=== PATIENT | female | born 1990 | race Two or more races ===

== ENCOUNTER 2018-10-30 05:14 | Outpatient (CLI) | payer OTHER ==
[~2018-10-30] VITALS: Ht 149.9 cm; Wt 105.0 kg
[2018-10-30 05:38] VITALS: BP 101/58
[2018-10-30] MEDS ORDERED: PRENTAB9 PO (05:48)
--- NOTE | 2018-10-30 06:35 | IPNPDOC ---
Text Note Date of Service The patient was seen on 10/30/18. NOTE OB Considerations: - H/O FGR, resolved - H/O Low Lying Placenta, resolved Leighton is a 28yo G1 at 37+2wks by LMP (CLAUDIO [id number]) presents for increased movement and a "weird shape" to her abdomen. She reports that her baby has been moving a lot over night, and she noted that yesterday, the bottom of her stomach felt "flatter" and "sucked in". Otherwise, she has no complaints and denies ctx, VB, LOF, headache, vision changes, RUQ pain. VS: Reviewed, WNL GEN: WNWD, NAD ABD: Soft, Gravid, NT EXT: No edema FHT: Reactive, 130bpm, moderate variability, + Accelerations, - Decelerations TOCO: Rare contractions A/P: SIUP at 37+2wks with the above complaint, feared condition - not found. Reaction NST, rare ctx. Discussed movement and position can change the shape of her belly. I discussed that it was good to feel movement and discussed concerned for decreased movement and discussed kick counts. She verbalized understanding and all questions were answered. - Discussed strict return and labor precautions - Encouraged hydration - Discussed kick counts - Patient is to keep all scheduled follow up, next appointment 26Sep DO DOROTHY Mcleod,Dru, I+O VS, Dru, I+O Vital Signs Date Time Temp Pulse Resp B/P (MAP) Pulse Ox O2 Delivery O2 Flow Rate FiO2 10/30/18 05:38 97.3 83 101/58 (72) I&O- Last 24 Hours up to 6 AM 10/30/18 06:00 Intake Total 200 ml Balance 200 ml GLO REYEZ DO Oct 30, 2018 06:35
== END 2018-10-30 06:25 | disposition home or self-care (01) ==
LOC: M LDO 05:14
PROVIDERS: ATTEND Obstetrics & Gynecology
DX: O26.893 Other specified pregnancy related conditions, third trimester (principal); Z3A.37 37 weeks gestation of pregnancy
CPT/HCPCS: 59025; G0378; G0463

== ENCOUNTER 2018-11-23 09:59 | Outpatient (CLI) | payer OTHER ==
[~2018-11-23] VITALS: Ht 149.9 cm; Wt 66.3 kg
[~2018-11-23 09:59] MED LIST: PRENTAB9 PO
[2018-11-23 10:14] VITALS: BP 102/63
--- NOTE | 2018-11-23 11:15 | IPNPDOC ---
Text Note Date of Service The patient was seen on 11/23/18. NOTE patient is a 28 yo G1 @ 40+5wks gestation presents to l&d for contractions. denies LOF/VB. +FM vitals: normal NAD abd: gravid ce: /-3 (per nursing exam) fht 135/mod tan/pos accel/no decel toco: irregular ctx a/p patient not in active labor. return precautions given. f/u for IOL as scheduled. DO Rose VS,Dru, I+O VS, Fishbone, I+O Vital Signs Date Time Temp Pulse Resp B/P (MAP) Pulse Ox O2 Delivery O2 Flow Rate FiO2 11/23/18 10:14 98.4 92 102/63 (76) ARLEEN GUALLPA DO Nov 23, 2018 11:15
== END 2018-11-23 11:30 | disposition home or self-care (01) ==
LOC: M LDO 09:59
PROVIDERS: ATTEND Obstetrics & Gynecology
DX: O47.1 False labor at or after 37 completed weeks of gestation (principal); Z3A.40 40 weeks gestation of pregnancy
CPT/HCPCS: 59025; G0378; G0463

== ENCOUNTER 2018-11-25 16:20 | Inpatient (IN) | payer OTHER ==
[~2018-11-25] VITALS: Ht 149.9 cm; Wt 66.3 kg
[2018-11-25] VITALS (8 sets, daily range): BP systolic 95–125; BP diastolic 51–70
[2018-11-25] MEDS ORDERED: [UNRECOGNIZED DRUG - CODE] PO (16:44)
[2018-11-25 17:09] LABS: HEMATOCRIT 34.2 % (36.0-47.0); HEMOGLOBIN 11.6 g/dl (12.0-15.5); MEAN CORPUSCULAR HEMOGLOBIN 31.3 pg (27.0-33.0); MEAN CORPUSCULAR HGB CONC 33.9 g/dl (32.0-36.5); MEAN CORPUSCULAR VOLUME 92.2 fl (80.0-96.0); PLATELET COUNT, AUTOMATED 224 10^3/uL (150-450); RED BLOOD COUNT 3.71 10^6/uL (4.00-5.40); WHITE BLOOD COUNT 10.8 10^3/uL (4.0-10.0)
[2018-11-25] MEDS ORDERED: LACTATED RINGER'S 1000 ML IV STA (18:03)
--- NOTE | 2018-11-25 18:20 | HPEPDOC ---
Obstetrical History & Physical General Date of Admission Nov 25, 2018 at 16:20 Primary Care Physician: Zoya Vaz MD History of Present Illness OB Considerations: Resolved Low Lying Placenta 27y/o G1 @ 41+0 wks by LMP c/w 1st trimester US (CLAUDIO [id number]) presents for IOL for pending post dates. Chief Complaint: Induction of labor Information Provided By: Patient Age: 27 : 1 Term: 0 Pre-term: 0 Abortions: 0 Livin Care Care: Good Care Dating Final EDC: Nov 18, 2018 Final EDC for Daily Update: Nov 18, 2018 Final EDC by: 1st trimester (US) Estimated Date of Confinement: Nov 18, 2018 EGA at Admission: 41 Antepartum Course Diagnos(e)s Resolved Low Lying Placenta 10th percentile, repeat scan 14th percentile Height (inches): 59 Pre- weight (lbs.): 127 Admission Weight (lbs.): 145 Change in Weight (lbs.): 19 Past Medical History Past Obstetrical History : Past Obstetrical History: Primgravida 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 Past Medical History Medical History Denies Surgical History: Denies/None Family History Significant Family History: No pertinent family hx Social History Marital Status: Family situation: Spouse/partner home Psychosocial History: No pertinent psych hx * Smoker: non-smoker Alcohol: Denies Drugs: denies Abuse Violence Screening Have you been hit/kicked/slapp: No Have you been sexually assault: No Imunizations Tdap status: current Influenza Status: needs Allergies Coded Allergies: No Known Allergies (Unverified , 10/30/18) Medications Scheduled [place]-3 Fatty Acids/Fish Oil (Fish Oil Pearls Softgel) 1 Each Capsule, 1 CAP PO DAILY No.137/Iron/Folic Acd ( Vitamin Tablet) 1 Each Tablet, 1 TAB PO DAILY Physical Examination Physical Examination GENERAL: Alert and oriented times three. BREAST: . ABDOMEN: Gravid and non-tender to touch. FETUS: Is vertex (VTX) by sterile vaginal examination (SVE), fetus is vertex (VTX) by Mlyes. HEART RATE: Regular rate and rhythm. LUNGS: Clear to auscultation (CTA). EXTREMITIES: No edema. No clonus. Deep tendon reflexes (DTRs) + . Vital Signs/I&O Vital Signs Date Time Temp Pulse Resp B/P (MAP) Pulse Ox O2 Delivery O2 Flow Rate FiO2 11/25/18 17:37 75 18 118/57 (77) 11/25/18 16:47 99.8 98 Laboratory Data 24H LABS Laboratory Tests 2 11/25/18 16:30: Serology Scanned Report Hepatitis B Testing 11/25/18 16:57: Nucleated Red Blood Cells % (auto) 0.0, Syphilis Serology NONREACTIVE CBC/BMP Laboratory Tests 11/25/18 16:57 Pertinent Laboratoy Data Blood Type: A+ RBC Antibody Screen: Negative HIV: Negative Hepatitis B: Negative Hepatitis C: Unknown Rapid Plasma Reagin: Nonreactive Rubella: Immune Varicella: Immune Chlamydia/Gonorrhea: Negative Group B Streptococcus: Negative Quad Screen Test: Unknown Cystic Fibrosis: Negative Glucose Tolerance Test: 112 Anatomy Ultrasound Ultrasound Date: July 01, 2018 Placenta Location: Posterior Normal Anatomy: Yes Placenta Previa: No (Low lying placenta) Estimated Weight (grams): 274 Other Ultrasounds [id number] Information Placenta 1.96cm from os EFW 645, 14%tile Steroid Therapy Steroid Therapy: No Vaginal Examination Dilation: 2cm Effacement: 50% Station: -2 Cervical Consistency: Medium Cervical Position: Posterior Presentation: Cephalic presentation Position: Vertex (occiput) Assessment Heart Rate (FHR): 135 Variability: Moderate Accelerations: Positive Decelerations: None Tocometer Contractions: Yes Frequency: regular, every 2-5 min. Duration: greater than 60 seconds Strength: palpated as moderate Multi-drug resistant Organism: No history of MDRO Assessment/Plan Assessment 27y/o G1 @ 41+0 wks admitted for IOL for PPD. EFW 3600g. Vertex by TAUS. Plan Admit and orient. Cap Coverer and consent. Diet: Clear liquids Group B Streptococcus (GBS) negative. Labs and intravenous (IV) per unit protocol. Will start ripening with cytotec 25mcg PV Counseled on Pitocin and induction of labor (IOL). Lactated Ringers (LR): Bolus 1000 mL, then at 125 mL/hr. Anticipate [normal spontaneous delivery ()]. C-S as appropriate. Labor and Delivery Counseling Discussed procedures on labor and delivery to include external and internal monitoring, antibiotics for infection, medication for pain control or to i nduce contractions. Discussed risks of delivery which include bleeding, with subsequent need for blood transfusion (risks include transfusion reaction and transmission of infectious disease such as Hepatitis or HIV), infection, tears of the vagina which will be repaired with suture that will dissolve on their own. If baby is low in the pelvis and has trouble with heart rate, sometimes delivery can be assisted with vacuum or forceps. Other risks include need for emergency , injury to baby, or need to do additional procedures. All questions answered to patient's apparent satisfaction. Zoya Vaz MD Nov 25, 2018 18:20
[2018-11-25] MEDS: LR 1,000 ML IV SCH (18:44)
[2018-11-25] MEDS ORDERED: miSOPROStol 25 MCG 1/4 TAB (S0191) PV ONE (20:15)
[2018-11-26] VITALS (64 sets, daily range): BP systolic 80–137; BP diastolic 45–66
--- NOTE | 2018-11-26 01:51 | IPNPDOC ---
Text Note Date of Service The patient was seen on 11/26/18. NOTE 27y/o G1 @ 41+1 wks undergoing IOL for PPD. DCE 50/-2, Cytotec given 193 DCE /-2 0030 FB placed (COOK, 60cc uterine side only) 0145 with some clot noted NST: 135, MOD SAMANTHA, +accels, no decels TOCO: q2-4 minutes A/p: 27y/o G1 @ 41+1 wks undergoing IOL for PPD. Currently undergoing cervical ripening with tiwari balloon. Some more than expected vaginal bleeding for early cervical dilation. Patient noted to have a low lying placenta, which most recently was measured 1.96cm from the os. Per up to date, chance of successful vaginal delivery with placenta 11mm to 20mm from os is 85%. Amount of bleeding not concerning for placental abruption at this time, Cat I heart tracing. -Continuous monitoring -Continue to monitor vaginal bleeding -Nubain 10IM/10IV, Phenergan 12.5mg at patient request -GBS negative: no prophylaxis indicated -Plan to start Pitocin with delivery of tiwari balloon VS,Fishbone, I+O VS, Fishbone, I+O Laboratory Tests 11/25/18 16:57 Vital Signs Date Time Temp Pulse Resp B/P (MAP) Pulse Ox O2 Delivery O2 Flow Rate FiO2 11/25/18 22:31 99.1 86 18 107/57 (74) 11/25/18 16:47 98 I&O- Last 24 Hours up to 6 AM 11/26/18 06:00 Intake Total 659 ml Balance 659 ml Zoya Vaz MD Nov 26, 2018 01:51
[2018-11-26] MEDS ORDERED: NALBUPHINE HCL 10 MG/ML AMP (J2300) IM ONE (02:00)
[2018-11-26] MEDS ORDERED: NALBUPHINE HCL 10 MG/ML AMP (J2300) IV ONE (02:00)
[2018-11-26] MEDS ORDERED: PROMETHAZINE INJ 25 MG/ML VIAL (J2550) IV ONE (02:00)
[2018-11-26] MEDS: LR 1,000 ML IV SCH ×4 (02:43→18:44)
[2018-11-26] MEDS ORDERED: OXYTOCIN DRIP 30 UNITS in IV 1 EA IV SCH (08:15)
[2018-11-26] MEDS ORDERED: FENTANYL 2MCG/ML ROPIVACAINE 0.2% IN 0.9% NACL 100ML IVBAG As Ordered ONE (16:30)
--- NOTE | 2018-11-26 17:20 | IPNPDOC ---
Text Note Date of Service The patient was seen on 11/26/18. NOTE assume care from MAJ Zuluaga patient is a 28 yo G1 @ 41+1wks admitted for IOL for PPD. Induction with cytotec and tiwari bulb. tiwari bulb came out around 1300 today. patient currently on 8mU/min pit. She was last checked when tiwari bulb placed. She is javon painfully and desires to have epidural. vital: normal nad fht: 120/mod tan/pos accel/no decel toco: ctx q 3min. patient likely in latent labor at this time. continue with plan for epidural. will assess for need to AROM after epidural placement. Le, DO VS,Fishbone, I+O VS, Fishbone, I+O Vital Signs Date Time Temp Pulse Resp B/P (MAP) Pulse Ox O2 Delivery O2 Flow Rate FiO2 11/26/18 10:42 98.7 81 16 96/54 (68) 11/25/18 16:47 98 I&O- Last 24 Hours up to 6 AM 11/26/18 06:00 Intake Total 659 ml Balance 659 ml ARLEEN GUALLPA DO Nov 26, 2018 17:20
[2018-11-26] MEDS ORDERED: EPIDURAL COMMENT XX SCH (19:45)
[2018-11-26] MEDS ORDERED: diphenhydrAMINE INJ 50MG/ML VIAL (J1200) IV PRN (19:45)
[2018-11-26] MEDS ORDERED: NALOXONE INJ 0.4 MG/1 ML VIAL (J2310) IV PRN (19:45)
[2018-11-26] MEDS ORDERED: LACTATED RINGER'S 1000 ML IV PRN (19:45)
[2018-11-26] MEDS ORDERED: ONDANSETRON 4MG/2ML VIAL (J2405) IV PRN (19:45)
[2018-11-26] MEDS ORDERED: FENTANYL/ROPIVACAINE/NACL BAG 100 ML EPIDURAL SCH (19:45)
[2018-11-26] MEDS ORDERED: ePHEDrine SULFATE 25 MG/5 ML(5MG/ML) SYRINGE IV PRN (19:45)
[2018-11-26] MEDS ORDERED: REFRIGERATOR IV KEYS XX PRN (19:45)
[2018-11-26] MEDS ORDERED: EPIDURAL/PCA KEYS XX PRN (19:45)
--- NOTE | 2018-11-26 21:30 | IPNPDOC ---
Text Note Date of Service The patient was seen on 11/26/18. NOTE patient is comfortable with epidural. on 8mU/min pit. vitals: normal NAD fht: 145/mod tan/no accel/no decel toco: ctx q 3-5mins CE: 5-6/80/0, AROM, MEC. a/p patient in active labor. recheck in 4-6hrs. sooner prn. Le, VS,Fishbone, I+O VS, Fishbone, I+O Vital Signs Date Time Temp Pulse Resp B/P (MAP) Pulse Ox O2 Delivery O2 Flow Rate FiO2 11/26/18 18:28 69 105/57 (73) 11/26/18 16:01 98.7 18 11/25/18 16:47 98 I&O- Last 24 Hours up to 6 AM 11/26/18 06:00 Intake Total 659 ml Balance 659 ml ARLEEN GUALLPA DO Nov 26, 2018 21:30
[2018-11-27] VITALS (37 sets, daily range): BP systolic 88–134; BP diastolic 50–71
[2018-11-27] MEDS: LR 1,000 ML IV SCH ×4 (02:59→18:03)
--- NOTE | 2018-11-27 03:38 | IPNPDOC ---
Text Note Date of Service The patient was seen on 11/27/18. NOTE patient was checked 2 hrs prior and was 8cm. Currently on 10mU/min pit. fht: 145/min-mod tan/no accel/early decel toco: ctx q 3-5mins ce: 8/90/0 a/p patient in active labor, no change since last checked. IUPC placed to assess uterine strength. discussed with patient regarding my concern for slow active phase. Will recheck 2 hrs after having adequate contractions. Rose, VS,Fishbone, I+O VS, Fishbone, I+O Vital Signs Date Time Temp Pulse Resp B/P (MAP) Pulse Ox O2 Delivery O2 Flow Rate FiO2 11/26/18 23:26 70 111/54 (73) 11/26/18 23:03 99.3 18 11/25/18 16:47 98 I&O- Last 24 Hours up to 6 AM 11/27/18 06:00 Intake Total 3894 ml Output Total 2800 ml Balance 1094 ml ARLEEN GUALLPA DO Nov 27, 2018 03:38
--- NOTE | 2018-11-27 06:05 | IPNPDOC ---
Text Note Date of Service The patient was seen on 11/27/18. NOTE patient is a feeling constant pressure. pit at 14mU. vitals: tmax 100.4 fht: 145/mod tan/no accel/no decel IUPC: 150-200MVU. adequate for last 1.5hrs. ce: anterior lip/90/+1 a/p patient in active labor, continues to make cervical change. will reposition and recheck in 1 hr. Patient rising temperature. start treating for presumed chorio with unasyn 3gm VS,Fishbone, I+O VS, Fishbone, I+O Vital Signs Date Time Temp Pulse Resp B/P (MAP) Pulse Ox O2 Delivery O2 Flow Rate FiO2 11/26/18 23:26 70 111/54 (73) 11/26/18 23:03 99.3 18 11/25/18 16:47 98 I&O- Last 24 Hours up to 6 AM 11/27/18 06:00 Intake Total 3894 ml Output Total 2800 ml Balance 1094 ml ARLEEN GUALLPA DO Nov 27, 2018 06:05
[2018-11-27] MEDS: AMPICILLIN SOD/SULBACTAM SOD 3 GM in D5W MINI-BAG PLUS 100 ML IV SCH ×3 (06:22→18:42)
--- NOTE | 2018-11-27 07:51 | IPNPDOC ---
Text Note Date of Service The patient was seen on 11/27/18. NOTE patient is currently on 14mU pit diagnosed with chorio FHT: 160/min-mod tan/no accel/no decel IUPC:>180MVU ce: anterior lip/90/+1 a/p protracted active labor phase. Arrest of dilation, recommend section with patient. Risks and benefits of delivery discussed. patient desires to have more positioning changes and wait for one more hour. Rose, VS,Wolfgangbone, I+O VS, Fishbone, I+O Vital Signs Date Time Temp Pulse Resp B/P (MAP) Pulse Ox O2 Delivery O2 Flow Rate FiO2 11/27/18 07:12 81 131/70 (90) 11/27/18 05:55 100.2 18 11/25/18 16:47 98 I&O- Last 24 Hours up to 6 AM 11/27/18 06:00 Intake Total 3894 ml Output Total 3200 ml Balance 694 ml ARLEEN GUALLPA DO Nov 27, 2018 07:51
[2018-11-27] MEDS ORDERED: LIDOCAINE PRES-FREE 2% 10ML AMP As Ordered ONE (08:39)
[2018-11-27] MEDS ORDERED: EPINEPHrine INJ 1 MG/ML 1ML AMP As Ordered ONE (08:39)
[2018-11-27] MEDS ORDERED: MORPHINE PRES-FREE INJ 10 MG/10 ML VIAL (J2274) As Ordered ONE (08:40)
[2018-11-27] MEDS ORDERED: ONDANSETRON 4MG/2ML VIAL (J2405) As Ordered ONE (08:46)
[2018-11-27] MEDS ORDERED: dexameTHASONE 4 MG/ML 1ML VIAL (J1100) As Ordered ONE (08:46)
[2018-11-27] MEDS ORDERED: OXYTOCIN INJ 10 UNITS/ML VIAL (J2590) As Ordered ONE (08:48)
[2018-11-27] MEDS ORDERED: ceFAZolin 2 GM/D5W 50 ML IV BAG (J0690 PER 500MG) As Ordered ONE (08:49)
[2018-11-27] MEDS ORDERED: BICITRA 30ML SOLN UDC As Ordered ONE (08:50)
--- NOTE | 2018-11-27 08:53 | IPNPDOC ---
Text Note Date of Service The patient was seen on 11/27/18. NOTE patient feeling constant pressure on 14mU pit. patient on hands and knees. fht: 160/min-mod tan/no accel/no decel IUPC: >180MVU ce: anterior lip/90/+1, attempt to reduce cervix with patient pushing was no successful. a/p patient arrest of dilation. Recommend primary section at this time. Reviewed risks of section to include injuring to surrounding organs, bleeding requiring blood transfusion and risk of receiving blood, infection needing extended stay at hospital for antibiotics, repeat surgery to possible injury or infection, injury to baby explained. patient expresses understanding and agrees to section. consent form signed. ancef 2gm for prophy. back to OR once team ready. Rose, VS,Dru, I+O VS, Monicae, I+O Vital Signs Date Time Temp Pulse Resp B/P (MAP) Pulse Ox O2 Delivery O2 Flow Rate FiO2 11/27/18 07:12 81 131/70 (90) 11/27/18 05:55 100.2 18 11/25/18 16:47 98 I&O- Last 24 Hours up to 6 AM 11/27/18 06:00 Intake Total 3894 ml Output Total 3200 ml Balance 694 ml ARLEEN GUALLPA DO Nov 27, 2018 08:49
[2018-11-27] MEDS: PRENATAL VITAMINS CHEWABLE TABLET PO SCH (09:00)
[2018-11-27] MEDS: FERROUS SULFATE 325MG TAB PO SCH (09:00)
[2018-11-27] MEDS ORDERED: ceFAZolin SOD 2 GM in IV 1 EA IV ONE (09:00)
[2018-11-27] MEDS ORDERED: BICITRA 30ML SOLN UDC PO ONE (09:00)
[2018-11-27] MEDS ORDERED: TRANEXAMIC ACID 100 MG/ML 10ML VIAL As Ordered ONE (09:40)
[2018-11-27] MEDS ORDERED: PHENYLephrine HCL 500 MCG/5 ML (100MCG/ML) SYRINGE (J2370) As Ordered ONE (09:47)
[2018-11-27] MEDS ORDERED: diphenhydrAMINE INJ 50MG/ML VIAL (J1200) IV PRN (10:00)
[2018-11-27] MEDS ORDERED: NALBUPHINE HCL 10 MG/ML AMP (J2300) IV PRN (10:00)
[2018-11-27] MEDS ORDERED: ONDANSETRON 4MG/2ML VIAL (J2405) IV PRN ×3 (10:00→11:00)
[2018-11-27] MEDS ORDERED: NALOXONE INJ 0.4 MG/1 ML VIAL (J2310) IV PRN ×2 (10:00)
[2018-11-27] MEDS ORDERED: TRANEXAMIC ACID INJection 1,000 MG in NS 100 ML IV ONE (10:00)
[2018-11-27] MEDS ORDERED: METOCLOPRAMIDE INJ 10MG/2ML VIAL (J2765) IV PRN (10:00)
[2018-11-27 10:20] LABS: CORD GAS ABE A -3.6; CORD GAS ABE V -6.3; CORD GAS HCO3 A 23.3 MEQ/L; CORD GAS HCO3 V 18.2 MEQ/L; CORD GAS O2 SAT A 46.5 %; CORD GAS O2 SAT V 86.8 %; CORD GAS PCO2 A 49.6 mmHg; CORD GAS PCO2 V 33.1 mmHg; CORD GAS PH A 7.289 UNITS; CORD GAS PH V 7.357 UNITS; CORD GAS PO2 A 21.7 mmHg; CORD GAS SBC A 20.4 MEQ/L; CORD GAS SBC V 19.1 MEQ/L; CORD GAS TCO2 A 24.8 MEQ/L; CORD GAS TCO2 V 19.2 MEQ/L
[2018-11-27] MEDS ORDERED: OXYTOCIN DRIP 30 UNITS in IV 1 EA IV SCH (10:32)
[2018-11-27] MEDS ORDERED: fentaNYL 100 MCG/2 ML INJECTION (J3010) As Ordered ONE (10:37)
[2018-11-27] MEDS ORDERED: PERCOCET 5MG/325MG TAB PO PRN (10:45)
[2018-11-27] MEDS ORDERED: METHYLERGONOVINE MALEATE 0.2 MG/ML VIAL (J2210) IM ONE (10:45)
[2018-11-27] MEDS ORDERED: MEASLES,MUMPS,RUBELLA VACCINE INJ (MMR-II) (90707) SC SCH (10:45)
[2018-11-27] MEDS ORDERED: METHYLERGONOVINE MALEATE 0.2 MG TAB PO PRN (10:45)
[2018-11-27] MEDS ORDERED: RHOGAM 300 MCG (1500 IU) INJ (J2790) IM SCH (10:45)
[2018-11-27] MEDS ORDERED: MOM 30ML SUSPENSION UDC PO PRN (10:45)
--- NOTE | 2018-11-27 10:52 | ROOPDOC ---
[facility] Report Of Operation Report of Operation DATE OF PROCEDURE: 11/27/18 PREPROCEDURE DIAGNOSES: 1. SIUP @ 41+2 2. Arrest of dilation 3. Suspected Chorioamnionitis POSTPROCEDURE DIAGNOSES: 1. Arrest of Dilation 2. Chorioamnionitis 3. Viable Female , agarmarilia 10/19, EFW 3790g [id number] PROCEDURE: Primary Low Transverse SURGEON: Zoya Vaz MD BIOMETRICS CONSULTANT: Dr. Rebekah Rose MD ANESTHESIA: Epidural ESTIMATED BLOOD LOSS: Approximately 1500 mL. COMPLICATIONS: Hemorrhage, otherwise uncomplicated REMARKS: UOP: 300cc IV Fluids: 1900cc EBL: 1500cc Medications: TXA 1g, Methergine 0.2mg INDICATION: Ms Alicea is a 28y/o G1 @ 41+2 wks with arrest of dilation at anterior lip. DESCRIPTION OF PROCEDURE: The risks, benefits and alternatives were discussed with the patient and informed consent was obtained. She was taken to the operating room with an IV running and epidural anesthesia was used for procedure. The patient was placed in a left tilt position with bent legs for vaginal hand access. She was prepped and draped in the usual sterile fashion. Anesthesia was tested and noted to be adequate. A Pfannenstiel incision was made and carried sharply to the level of the fascia, which was incised on either side of midline and carried laterally with Sepulveda scissors. The fascia was then tented and from the underlying muscle bellies. The same was performed on the inferior fascia. The peritoneum was entered bluntly and stretched laterally and a bladder blade was placed. A low transverse incision was made and stretched cephalad and caudally bluntly. Hands were placed to deliver the infant, which was elevated through the hysterotomy. The shoulders and body delivered with fundal pressure. No nuchal cord noted. Cord blood was collected for gases. The cord was then clamped x2 and cut by FOB and handed to awaiting pediatrics team. The placenta was expressed intact, 3vc, central insertion. The uterus was wiped clear of clots and debris. At this time uterine atony was noted and 0.2mg of Methergine was given IM as well as 1g TXA. The hysterotomy was closed with a running locked 0-Vicryl suture, a second imbricating layer of 0-Monocryl gained excellent hemostasis. The uterus was replaced insitu and gutters cleared of clots and debris. The hysterotomy was re-examined and noted to be hemostatic. The muscle bellies and fascia were reinspected and noted to be hemostatic. The fascia was closed with 0-Vicryl in a running manner. The subq was close with interrupted 3-0 Vicryl. The skin was closed with 4-0 Monocryl, Steris and an Optifoam dressing. Sponge needle and lap counts were correct x2. to NICU for chorio, mother stable to PACU at conclusion of procedure. EBL 1500cc Zoya Vaz MD Nov 27, 2018 10:52
[2018-11-27] MEDS ORDERED: ACETAMINOPHEN 500 MG TAB PO ONE (11:00)
[2018-11-27] MEDS ORDERED: fentaNYL 100 MCG/2 ML INJECTION (J3010) IV PRN (11:00)
[2018-11-27] MEDS ORDERED: ACETAMINOPHEN 1000MG 100ML IV BTL (OFIRMEV) (J0131 PER 10MG) As Ordered ONE (11:11)
[2018-11-27] MEDS ORDERED: ACETAMINOPHEN *IV* 1,000 MG IV ONE ×2 (11:15)
[2018-11-27] MEDS ORDERED: KETOROLAC 30 MG/ML VIAL (J1885) As Ordered ONE (11:19)
[2018-11-27] MEDS: KETOROLAC 30 MG/ML VIAL (J1885) IV SCH ×2 (11:26→17:38)
[2018-11-27 13:36] LABS: HEMATOCRIT 28.5 % (36.0-47.0); MEAN CORPUSCULAR HEMOGLOBIN 30.6 pg (27.0-33.0); MEAN CORPUSCULAR HGB CONC 33.3 g/dl (32.0-36.5); MEAN CORPUSCULAR VOLUME 91.9 fl (80.0-96.0); PLATELET COUNT, AUTOMATED 164 10^3/uL (150-450); WHITE BLOOD COUNT 21.4 10^3/uL (4.0-10.0)
[2018-11-27 13:39] LABS: HEMOGLOBIN 9.5 g/dl (12.0-15.5)
--- NOTE | 2018-11-27 18:32 | DNPDOC ---
[facility] Delivery Note Delivery Note DATE OF DELIVERY: [id number] PREDELIVERY DIAGNOSIS: 41+2/7 weeks' gestation and labor. POST DELIVERY DIAGNOSIS: Delivered. PROCEDURE: Primary section HAND MEAT SALTER: Dr. Vaz ANESTHESIA: Epidural ESTIMATED BLOOD LOSS: 1500 mL. FINDINGS: 8 pound 6 ounce 3790g infant, Score 9/9, no nuchal cord. DELIVERY SUMMARY: Patient is a 28-year-old 1 now para 1001 who was admitted to labor and delivery for induction of labor for pending post dates. She developed chorioamnionitis and had arrest of dilation at anterior lip. She underwent PLTCS complicated by hemorrhage. See operative report for full details. Zoya Vaz MD Nov 27, 2018 18:32
[2018-11-27] MEDS: DOCUSATE SODIUM 100 MG CAP PO SCH (21:59)
[2018-11-28] MEDS: KETOROLAC 30 MG/ML VIAL (J1885) IV SCH ×2 (00:36→06:12)
[2018-11-28] MEDS: AMPICILLIN SOD/SULBACTAM SOD 3 GM in D5W MINI-BAG PLUS 100 ML IV SCH ×2 (01:39→06:41)
[2018-11-28 02:00] VITALS: BP 100/52
[2018-11-28] MEDS: LR 1,000 ML IV SCH (02:39)
[2018-11-28 06:00] VITALS: BP 105/62
[2018-11-28 06:55] LABS: HEMATOCRIT 22.1 % (36.0-47.0); MEAN CORPUSCULAR HEMOGLOBIN 31.4 pg (27.0-33.0); MEAN CORPUSCULAR HGB CONC 33.9 g/dl (32.0-36.5); MEAN CORPUSCULAR VOLUME 92.5 fl (80.0-96.0); PLATELET COUNT, AUTOMATED 132 10^3/uL (150-450); RED BLOOD COUNT 2.39 10^6/uL (4.00-5.40); WHITE BLOOD COUNT 18.7 10^3/uL (4.0-10.0)
[2018-11-28 07:02] LABS: HEMOGLOBIN 7.5 g/dl (12.0-15.5)
--- NOTE | 2018-11-28 08:26 | IPNPDOC ---
Text Note Date of Service The patient was seen on 11/28/18. NOTE 28y/o POD#1 s/p PLTCS for arrest of dilation in the setting of chori oamnionitis. Surgery was complicated by atony and hemorrhage with EBL 1500c. She received 0.2mg Methergine and 1g TXA intraoperatively. This morning, patient reports pain is controlled with oral pain medications. She is ambulating without lightheadedness. Her Campbell has been removed and she is voiding without difficulty. Lochia is diminishing. Plans to breast feed. in NICU for chorio. Patient desires condoms for contraception. VS: Normotensive. Last febrile at 1215 on 18Oct. Non tachycardic. Gen: alert and oriented Resp: CTAB, no crackles, wheezes or rhonchi CV:RRR, no murmurs, rubs or gallops Abd: Soft, appropriately tender. Dressing in place with no strike though Ext: No edema, erythema or calf tenderness UOP: 2.54 ml/kg/hr HCT: 34.2 -> 28.2 -> 22.1 A/p: 28y/o POD#1 s/p PLTCS for arrest of dilation/chorioamnionitis complicated by PPH -Encourage ambulation, hydration, breast feeding, IS use -Will discontinue Unasyn this afternoon at 24 hours afebrile -Motrin and Percocet for pain control -A pos, Rubella immune -Acute anemia: asymptomatic and normal VS. Will consider transfusion if patient becomes symptomatic. -Contraception: desires condoms -Anticipate discharge on POD# 2-3 VS,Fishbone, I+O VS, Fishbone, I+O Laboratory Tests 11/27/18 13:19 11/28/18 06:36 Vital Signs Date Time Temp Pulse Resp B/P (MAP) Pulse Ox O2 Delivery O2 Flow Rate FiO2 11/28/18 06:00 97.9 96 20 105/62 (76) 97 I&O- Last 24 Hours up to 6 AM 11/28/18 05:59 Intake Total 3925 ml Output Total 4150 ml Balance -225 ml Zoya Vaz MD Nov 28, 2018 08:26
[2018-11-28] MEDS: DOCUSATE SODIUM 100 MG CAP PO SCH ×2 (09:40→22:34)
[2018-11-28] MEDS: FERROUS SULFATE 325MG TAB PO SCH (09:40)
[2018-11-28] MEDS: PRENATAL VITAMINS CHEWABLE TABLET PO SCH (09:40)
[2018-11-28 12:00] VITALS: BP 92/54
[2018-11-28 12:20] VITALS: BP 104/62
[2018-11-28] MEDS: IBUPROFEN 800 MG TAB PO SCH ×2 (14:10→22:34)
[2018-11-28] MEDS: PERCOCET 5MG/325MG TAB PO PRN ×2 (14:23→23:38)
[2018-11-28 18:33] VITALS: BP 100/60
[2018-11-28 22:00] VITALS: BP 101/58
[2018-11-29] VITALS (12 sets, daily range): BP systolic 98–125; BP diastolic 52–66
[2018-11-29] MEDS: IBUPROFEN 800 MG TAB PO SCH ×3 (05:42→22:05)
[2018-11-29] MEDS: PRENATAL VITAMINS CHEWABLE TABLET PO SCH (08:43)
--- NOTE | 2018-11-29 08:43 | IPNPDOC ---
Progress Note Date of Service: Nov 29, 2018 Day#: 2 Progress Note 28y/o POD#2 s/p PLTCS for arrest of dilation in the setting of chorioa mnionitis. Surgery was complicated by atony and hemorrhage with EBL 1500c. She received 0.2mg Methergine and 1g TXA intraoperatively. This morning, patient reports pain is controlled with oral pain medications. She felt a little light headedness when she stood up too fast. She is ambulating without lightheadedness. She is voiding without difficulty. Lochia is naun monique. Plans to breast feed. Infant in NICU for chorio. Patient desires condoms for contraception. VS: Normotensive. afebrile. Non tachycardic. Gen: alert and oriented Abd: Soft, appropriately tender. Dressing in place with no strike though, fundu s @ U-2 Ext: No edema, erythema or calf tenderness HCT: 34.2 -> 28.2 -> 22.1 a/p patient is a pod #2, clinically improving. anemia with mild symptoms at this time. baby in NICU. Discussed possibility of blood transfusion if patient does not tolerate normal activities without dizziness. Recommend starting iron infusion today. patient agrees to care plan. Start iron infusion today. anticipate d/c home tomorrow. DO jen VS, I&O, 24H, Fishbone Vital Signs/I&O Vital Signs Date Time Temp Pulse Resp B/P (MAP) Pulse Ox O2 Delivery O2 Flow Rate FiO2 11/29/18 05:41 97.8 86 16 114/65 (81) Room Air 11/29/18 02:00 97 ARLEEN GUALLPA DO Nov 29, 2018 08:43
[2018-11-29] MEDS: FERROUS SULFATE 325MG TAB PO SCH (08:44)
[2018-11-29] MEDS: DOCUSATE SODIUM 100 MG CAP PO SCH ×2 (08:44→22:05)
[2018-11-29] MEDS ORDERED: IRON SUCROSE 100MG 5ML VIAL (J1756 PER 1MG) IV SCH (08:45)
[2018-11-29] MEDS: IRON SUCROSE 300 MG in NS 250 ML IV SCH ×2 (10:26→22:15)
[2018-11-29] MEDS: PERCOCET 5MG/325MG TAB PO PRN ×2 (13:47→23:57)
[2018-11-30 00:34] VITALS: BP 107/61
[2018-11-30 05:42] VITALS: BP 104/62
[2018-11-30] MEDS: IBUPROFEN 800 MG TAB PO SCH (05:43)
--- NOTE | 2018-11-30 07:43 | IPNPDOC ---
Progress Note Date of Service: Nov 30, 2018 Progress Note 28y/o POD#3 s/p PLTCS for arrest of dilation in the setting of chorioamnionitis. Surgery was complicated by atony and hemorrhage with EBL 1500c. She received 0.2mg Methergine and 1g TXA intraoperatively. Patient received iron infusion yesterday. This morning, patient reports pain is controlled with oral pain medications. She is feeling improved from yesterday and able to get up by herself without problem. She is ambulating without lightheadedness. She is voiding without difficulty. Lochia is diminishing. Plans to breast feed. Infant in NICU for chorio. Patient desires condoms for contraception. having constipation VS: Normotensive. afebrile. Non tachycardic. Gen: alert and oriented Abd: Soft, appropriately tender. Dressing in place with no strike though, fundus @ U-2 Ext: No edema, erythema or calf tenderness HCT: 34.2 -> 28.2 -> 22.1 a/p patient is a pod #3, doing well. anemia, asymptomatic at this time. baby in NICU. discharge today. DO jen VS, I&O, 24H, Fishbone Vital Signs/I&O Vital Signs Date Time Temp Pulse Resp B/P (MAP) Pulse Ox O2 Delivery O2 Flow Rate FiO2 11/30/18 05:42 98.8 71 16 104/62 (76) Room Air 11/30/18 00:34 98 ARLEEN GUALLPA DO Nov 30, 2018 07:43
--- NOTE | 2018-11-30 07:45 | OBDS ---
[facility] Obstetrical Discharge Sum. Obstetrical Discharge Summary Pct/Provider: ARLEEN GUALLPA DO Date: Nov 30, 2018 : 1 Term: 1 Pre-term: 0 Abortions: 0 Livin VDRL: Non-Reactive Rh: Positive Rubella: Immune Sex: Female Infant Weight: pounds (8), ounces (6), grams (3790) Anesthesia: Regional Anesthesia A/P, Post Course List any complications Admission diagnosis: Gravid @ 41+1wks Discharge diagnosis: status post primary low transverse section anemia Condition at Discharge: stable Discharge Instructions: Home Activity: as tolerated Diet: regular Medications: filled at [facility] Follow-up: 2 weeks for incision check Hospital course: Patient admitted for induction of labor for pending post dates at 41+1wks gestation. Labor course complicated by chorioamnionitis and arrest of dilation at 9cm. She underwent primary low transverse section. Delivery complicated with hemorrhage. Patient received iv iron for anemia. Baby admitted to NICU for chorioamnionitis. Rest of her care uncomplicated and patient discharged home on day #3. ARLEEN GUALLPA DO Nov 29, 2018 18:22
[2018-11-30] MEDS ORDERED: MIRALAX *UNIT DOSE* 17GM PACKET PO SCH (09:00)
[2018-11-30] MEDS: FERROUS SULFATE 325MG TAB PO SCH (09:45)
[2018-11-30] MEDS: PRENATAL VITAMINS CHEWABLE TABLET PO SCH (09:45)
[2018-11-30] MEDS: DOCUSATE SODIUM 100 MG CAP PO SCH (09:45)
== END 2018-11-30 11:10 | disposition home or self-care (01) | DRG 771 ==
LOC: M LDI 16:20 → M OBS 11-27 12:05
PROVIDERS: ADMIT Obstetrics & Gynecology; ATTEND Obstetrics & Gynecology
PROC: 3E0P3VZ Introduction of Hormone into Female Reproductive, Percutaneous Approach (ICD-10-PCS; 2018-11-25)
PROC: 10D00Z1 Extraction of Products of Conception, Low, Open Approach (ICD-10-PCS; principal; 2018-11-27 09:08)
DX: O48.0 Post-term pregnancy (principal); O41.1230 Chorioamnionitis, third trimester, not applicable or unspecified; O72.1 Other immediate postpartum hemorrhage; Z37.0 Single live birth; Z3A.41 41 weeks gestation of pregnancy; O62.0 Primary inadequate contractions; D64.9 Anemia, unspecified; O99.03 Anemia complicating the puerperium